=== PATIENT | male | born 1975 | race Caucasian/White ===

== ENCOUNTER → 2024-08-22 | Outpatient (CLI) | payer BC, SELFPAY ==
[2024-08-22 17:15] LABS: Absolute Neutrophil Count 5.6 X10^3/uL (2.0-7.7); Basophil# 0.07 X10^3/uL; Basophil% 0.8 % (0-1); Eosinophil# 0.21 X10^3/uL; Eosinophils% 2.3 % (0-5); Lymphocyte % 26.5 % (19-41); Mean Corp Hgb Conc 34.9 g/dL (32-36); Mean Corpuscular Hgb 29.3 pg (27.0-32.0); Mean Platelet Vol. 10.3 fl (6.2-12.0); Monocyte# 0.74 X10^3/uL; Monocyte% 8.2 % (0-10); NRBC Flagged by Analyzer 0 % (0-5); Neutrophil # 5.62 X10^3/uL (2.7-7.7); Neutrophil % 61.9 % (47-70); Platelet Count 322 K/mm3 (150-450); RBC Distribution Width CV 12.4 % (11.6-14.6); Red Blood Count 5.12 M/mm3 (4.6-6.2); White Blood Count 9.1 K/mm3 (4.4-11.0)
[2024-08-22 17:55] LABS: ALB/GLOB Ratio 1.2 RATIO (0.9-2.4); AST(SGOT) 29 U/L (15-37); Alanine Aminotransfer ALT/SGPT 28 U/L (16-61); Albumin, Serum 4.2 g/dL (3.2-5.0); Alkaline Phosphatase 97 U/L (45-117); Anion Gap 8 (5-15); BUN 10 mg/dL (7-18); BUN/Creat Ratio 11.7 RATIO (10-20); Calcium,Total 8.9 mg/dL (8.5-10.1); Chloride 102 mmol/L (98-107); Cholesterol 180 mg/dL (200); Creatinine, Serum 0.85 mg/dL (0.70-1.30); EST Glomerular Filtration Rate 102 mL/min (>60); Est Glom Filt Rate - Afr Amer 124 mL/min (>60); Globulin 3.4 g/dL (2.2-4.2); Glucose 83 mg/dL (74-106); High Density Lipoprotein 62 mg/dL; Protein, Total 7.6 g/dL (6.4-8.2); Sodium Level 136 mmol/L (136-145); Triglycerides 79 mg/dL; Very Low Density Lipoprotein 16 mg/dL (5-40)
[2024-08-22 23:42] LABS: Hemoglobin A1c 5.1 % (3.8-5.6)
== END | disposition home or self-care (01) ==
LOC: VSLAB 16:54
PROVIDERS: PCP Nurse Practitioner Family; Visit Provider Nurse Practitioner Family
DX: Z00.00 Encounter for general adult medical examination without abnormal findings (principal)
CPT/HCPCS: 36415; 80053; 80061; 83036; 84443; 85025

== ENCOUNTER 2024-10-27 10:00 | Day surgery (SDC) | payer BC, SELFPAY ==
[2024-10-27] VITALS (10 sets, daily range): BP systolic 91–130; BP diastolic 54–82; PULSE 50–64; RESP 16; TEMP 36.2–36.6; O2SAT 97–100
--- NOTE | 2024-10-27 10:12 | PCM.PRE.AN2 ---
ASA Classification* ASA Classification ASA Classification: 2 Assessment & Plan Anesthesia* Anesthesia Assessment Anesthesia Assessment: Discussed sedation and/or anesthesia options, risks, benefits, and alternatives with patient/parents/legal guardian/POA. Questions invited. The patient/parents/legal guardian/POA seems to understand and agrees to proceed with anesthesia plan. Reviewed the physical assessment, medical history, allergy history and patient home medications list prior to surgery/procedure/anesthetic and documented any changes. Performed airway and anesthesia risk assessments. Anesthesia Type Anesthesia Type: MAC Anesthesia Focused Assessment* Airway Assessment Mouth opens: >3 cm Mallampati Score: II Focused Labs Anesthesia Preop lab: CBC WBC 9.1 K/mm3 (4.4-11.0) 08/22/24 16:56 08/22/24 RBC 5.12 M/mm3 (4.6-6.2) 08/22/24 16:56 08/22/24 Hgb 15.0 g/dL (13.0-16.5) 08/22/24 16:56 08/22/24 Hct 43.0 % (40-54) 08/22/24 16:56 08/22/24 Plt Count 322 K/mm3 (150-450) 08/22/24 16:56 08/22/24 CHEMISTRY Potassium 4.0 mmol/L (3.5-5.1) 08/22/24 16:56 08/22/24 Sodium 136 mmol/L (136-145) 08/22/24 16:56 08/22/24 BUN 10 mg/dL (7-18) 08/22/24 16:56 08/22/24 Creatinine 0.85 mg/dL (0.70-1.30) 08/22/24 16:56 08/22/24 Glucose 83 mg/dL (74-106) 08/22/24 16:56 08/22/24 TSH 2.820 uIU/mL (0.358-3.740) 08/22/24 16:56 08/22/24 COAG Pre-Assessment Diagnosis/Proposed Procedure Planned Operative Procedure(s): COLONOSCOPY Anesthesia History 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 When Was Last Pacemaker Check QUESTION #4 FULL TEXT: You/Your Family Experience fever (hyperthermia) with Anesthesia Last Oral Intake Last Oral intake: Last Oral Intake NPO since Meds taken in AM with sips of water? Meds patient instructed to take am of surgery PONV PONV - assistant business manager: PONV - assistant business manager Female No 10/20/24 16:49 HX of Motion Sickness Yes 10/20/24 16:49 HX of N/V After Surgery No 10/20/24 16:49 Non-Smoker Yes 10/20/24 16:49 Duration of Surgery greater No 10/20/24 16:49 than 60 minutes Number of Risk Factors 2 10/20/24 16:49 PONV Score Moderate Risk 10/20/24 16:49 Height & Weight Height & Weight: Anesthesia: Height & Weight Height 5 ft 6 in 09/21/24 14:28 Respiratory Assessment Respiratory Assessment - assistant business manager: Respiratory Tract Infection Hx - assistant business manager Hx Respiratory Tract Infection No 10/20/24 16:49 STOP Sleep Apnea STOP Sleep Apnea - assistant business manager: STOP Sleep Apnea - assistant business manager Hx Hypertension No 10/20/24 16:49 Hx Sleep Apnea No 10/20/24 16:49 CPAP BIPAP Do you snore loudly (louder Yes 10/20/24 16:49 than talking or can be heard Do you often feel tired/ No 10/20/24 16:49 fatigued/ sleepy during daytime? Has anyone observed you stop No 10/20/24 16:49 breathing during sleep? STOP Results Negative 10/20/24 16:49 QUESTION #5 FULL TEXT : Do you snore loudly (louder than talking or can be heard through closed doors)? Tobacco Use History Tobacco Use History - assistant business manager: Tobacco Use History - assistant business manager Tobacco Use Smoking Status Never smoker 10/20/24 16:49 Hx Tobacco Use Yes: CHEWS TOBACCO 10/20/24 16:49 Years Smoking Packs Smoked per Day Smoking Cessation Date was within the last 15 years Hx Smoking Cessation Date Hx Smoking Cessation Counseling Hematologic Medial History Hematologic Hx - assistant business manager: Hematologic Medical Hx - channel lip wetter Hx of Blood Transfusion No 10/20/24 16:49 Hx of Transfusion in last 3 No 10/20/24 16:49 Months Date of Last Transfusion (if within last 3 months) Ever experience any problems No 10/20/24 16:49 with transfusion(s)? Specify any problems Hx of Preganancy in last 3 N/A 10/20/24 16:49 Months Nurse Filling Out Transfusion MGRIFFITH 10/20/24 16:49 & Questions: Date: 10/20/24 10/20/24 16:49 Time: 16:51 10/20/24 16:49 Patient unable to answer at this time (ie. confused, unrespo /Reproduction History /Reproductive History - assistant business manager: /Reproductive Hx- assistant business manager Hx Now Gestational Age (in weeks): EDC: Hx Hx Para Hx Section SAB PFSH Medical History Wears glasses Heartburn Chews tobacco Family history of colon cancer Screening for colon cancer Kidney stones Home Medications ?Medication ?Instructions ?Recorded ?Last Taken ?Type NK 09/21/24 Unknown History Allergy/AdvReac Type Severity Reaction Status Date / Time No Known Allergies Allergy Verified 10/20/24 16:47 Surgical History History of lithotripsy Social History Smoking Status: Never smoker Smokeless tobacco user: other alcohol intake: never substance use type: does not use additional social history: pt denies vaping, denies edibles, denies marijuana use, denies aspirin, denies ibuprofen use, denies history of blood clots, pt admits using smokeless tobacco Review of Systems (Anesthesia) ROS Narrative System reviewed and no additional complaints, except as documented.
--- NOTE | 2024-10-27 10:52 | H&P.OPEN ---
HPI - General HPI Narrative ELIZABETH BALBUENA, is a 48 M who presents with family history of colon cancer in his brother who is 55. He denies any abdominal pain or blood in the stool. He has never had a colonoscopy. [facility] Medical History Wears glasses Heartburn Chews tobacco Family history of colon cancer Screening for colon cancer Kidney stones Home Medications ?Medication ?Instructions ?Recorded ?Last Taken ?Type NK 09/21/24 Unknown History Allergy/AdvReac Type Severity Reaction Status Date / Time No Known Allergies Allergy Verified 10/27/24 10:12 Surgical History History of lithotripsy Social History Smoking Status: Never smoker Smokeless tobacco user: other alcohol intake: never substance use type: does not use additional social history: pt denies vaping, denies edibles, denies marijuana use, denies aspirin, denies ibuprofen use, denies history of blood clots, pt admits using smokeless tobacco Past Medical/Surgical History Planned Operation Planned Operative Procedure(s): COLONOSCOPY Previous Hospitalizations/Surgeries HX Hospitalizations: No Any Problems With Anesthesia: No You/Your Family Experience Fever (Hyperthermia) With Anes: No Cholinesterase deficiency: No Cardiovascular Hx Hypertension: No Respiratory Hx Sleep Apnea: No Hx Respiratory Tract Infection/Cold (presently): No Do You Snore Loudly (louder than talking or can be heard): Yes Do You Often Feel Tired/ Fatigued/ Sleepy Dring Daytime?: No Has Anyone Observed You Stop Breathing During Sleep?: No Result (for STOP score): Negative Smoking Status: Never smoker Neurological Does patient have nerve stimulator: No Miscellaneous Recent Exposure to Contagious Disease: No Allergies No Known Allergies Allergy (Verified 10/27/24 10:12) Discharge Is Pt Admitted From a Fpc, or a Care Home: No Who Could Help: FAMILY After D/C, Where Do you Plan to Go: Return Home Vital Signs Vital Signs Vital Signs: 10/27/24 10:13 10/27/24 10:13 Temperature 97.8 F Temperature Source Temporal Pulse Rate 56 L Respiratory Rate 16 Respiratory Pattern Normal Blood Pressure 130/82 H Blood Pressure Mean 98 Blood Pressure Source Monitor Blood Pressure Position Sitting Blood Pressure Location Left Arm Pulse Ox 100 Oxygen Delivery Method Room Air Physical Exam Const alert and oriented x3 HEENT normocephalic Eyes PERRL Resp normal respiratory effort and normal air movement Cardio regular rate and regular rhythm GI soft to palpation, non-tender and non-distended Extremity normal to inspection Assessment & Plan Assessment/Plan (1) Family history of colon cancer: PLAN: I explained endoscopy in detail to the patient. I explained the risks including but not limited to stroke or heart attack with anesthesia, perforation of the GI tract, bleeding, infection. I explained that any of these could necessitate further emergency surgery. The patient understands and all questions were answered sufficiently. The patient wishes to proceed with procedure. Alberto Quinonez MD Pager: [facility] [address] [place] [address], [address] [place] [phone] Office: Surgery Risks - Colonoscopy Risks Include but are not Limited To: Risks include but are not limited to: Bleeding, perforation requiring further surgery, inability to complete colonoscopy requiring barium enema.
--- NOTE | 2024-10-27 11:00 | COLBX_PTH ---
PATIENT: ELIZABETH BALBUENA LOC: EN U#:[id number] AGE/SX: 48/M ROOM: RE10/27/[address]: Dr. Alberto Quinonez MD : 1975 BED: DIS: 10/27/2024 SPEC #: [id number] RECD: 10/27/24 16:42 STATUS: NALLELY VIDAL #: [id number] ELLIOT: 10/27/24 11:[address]: Alberto Quinonez DEPT: SURGICAL PATHOLOGY RECD BY: Karlie Lyons ENTERED: 10/30/24 07:36 SP TYPE: COLON BX OTHR DR: Ignacia Varghese, [facility], SENIOR MEDICAL TECHNOLOGIST-C Tissues: A - Rectum, NOS Procedures: Surgery Specimen Level IV HEADER OPERATION: Colonoscopy, polypectomy PRE-OP DIAGNOSIS: Family history of colon cancer TISSUE SUBMITTED: A- Rectal polyp MICROSCOPIC DIAGNOSIS A. Rectum, polyp, biopsy: * Tubular adenoma MICROSCOPIC DESCRIPTION Slides are reviewed. GROSS DESCRIPTION A. Received in formalin in a container labeled with the patient's name, date of , and rectal polyp are 2 evans-pink fragments of mucosal tissue measuring 0.5 x 0.2 x 0.1 cm and 0.6 x 0.6 x 0.5 cm. The largest is bisected (no margin identified). Submitted entirely in A1. [facility] 10/31/2024 CPT:22770
--- NOTE | 2024-10-27 11:19 | OP.CCLET_ITS ---
10/27/[address] [facility], Clinical Reviewer-c Re : Colonoscopy procedure for Jersey Varghese This procedure was performed on Sunday, October 27, 2024. My impressions and recommendations are as follows: Impressions : - One polyp in the rectum, removed with a hot snare. Resected and retrieved. - The entire examined colon is normal on direct and retroflexion views. Recommendations : - Discharge patient to home. - Resume previous diet. - Continue present medications. - Await pathology results. - Repeat colonoscopy in 5 years for surveillance. My findings are described in the full procedure note, which is enclosed. If I can be of further assistance, please feel free to contact me at Doctor phone number(s): , Work: . Sincerely, Alberto Quinonez MD 10/27/2024 11:18:57 AM This report has been signed electronically.
--- NOTE | 2024-10-27 11:19 | OP.COLON_ITS ---
Patient Name: Jersey Bernard Procedure Date: 10/27/2024 10:59 AM Date of : 1975 Age: 48 Procedure: Colonoscopy Indications: Screening in patient at increased risk: Family history of 1st-degree relative with colorectal cancer before age 60 years Providers: Alberto Quinonez MD Referring MD: Ignacia Varghese [facility], Financial Risk Manager-c Medicines: Propofol per Anesthesia Patient Profile: This is a 48 year old male. Refer to note in patient chart for documentation of history and physical. Last Colonoscopy: none. The patient's first colonoscopy is today. Complications: No immediate complications. Procedure: Pre-Anesthesia Assessment: - Prior to the procedure, a History and Physical was performed, and patient medications and allergies were reviewed. The patient's tolerance of previous anesthesia was also reviewed. The risks and benefits of the procedure and the sedation options and risks were discussed with the patient. All questions were answered, and informed consent was obtained. Prior Anticoagulants: The patient has taken no anticoagulant or antiplatelet agents. After reviewing the risks and benefits, the patient was deemed in satisfactory condition to undergo the procedure. After I obtained informed consent, the scope was passed under direct vision. Throughout the procedure, the patient's blood pressure, pulse, and oxygen saturations were monitored continuously. The Colonoscope was introduced through the anus and advanced to the cecum, identified by appendiceal orifice and ileocecal valve. The colonoscopy was performed without difficulty. The patient tolerated the procedure well. The quality of the bowel preparation was good. The ileocecal valve, appendiceal orifice, and rectum were photographed. Scope In: 11:04:28 AM Scope Withdrawal Time 0 hours 5 minutes 32 seconds Scope Out: 11:16:51 AM Total Procedure Duration Time 0 hours 12 minutes 23 seconds Findings: A polyp was found in the rectum. The polyp was removed with a hot snare. Resection and retrieval were complete. The entire examined colon appeared normal on direct and retroflexion views. Impression: - One polyp in the rectum, removed with a hot snare. Resected and retrieved. - The entire examined colon is normal on direct and retroflexion views. Recommendation: - Discharge patient to home. - Resume previous diet. - Continue present medications. - Await pathology results. - Repeat colonoscopy in 5 years for surveillance. Procedure Code(s): --- Professional --- 83013, Colonoscopy, flexible; with removal of tumor(s), polyp(s), or other lesion(s) by snare technique Diagnosis Code(s): --- Professional --- Z80.0, Family history of malignant neoplasm of digestive organs D12.8, Benign neoplasm of rectum CPT copyright 2021 [employer]. All rights reserved. The codes documented in this report are preliminary and upon cork insulation installer review may be revised to meet current compliance requirements. Alberto Quinonez MD 10/27/2024 11:18:57 AM This report has been signed electronically. Number of Addenda: 0 Note Initiated On: 10/27/2024 10:59 AM
--- NOTE | 2024-10-27 11:37 | PCM.POST.ANE ---
Anesthesia: Postop Eval I Current Vital Signs Temperature: 97.1 F Pulse Rate: 64 Blood Pressure: 97/57 Respiratory Rate: 16 Pulse Ox: 98 Oxygen Delivery Method: Room Air Assessment Airway patent: Yes Spontaneous unlabored respirations: Yes Mental status: Asleep nausea: No Vomiting: No Anesthesia Complication: No Fluid Hydration Crystalloid volume administer (ml): 55 Total IV fluid infused: 55 Progress Note Anesthesia document: Postop Eval 1 completed: Yes
--- NOTE | 2024-10-27 12:28 | PCM.POSTANE2 ---
Anesthesia Postop Eval I Sum Postop Eval Completion status Anesthesia document: Postop Eval 1 completed: Yes Anesthesia Postop Eval I Summary Anesthesia Postop Eval I Summary: Anesthesia Postop Eval I: Assessment Summary Airway patent Yes 10/27/24 11:38 [email or web address] Spontaneous unlabored Yes 10/27/24 11:38 [email or web address] respirations Mental status Asleep 10/27/24 11:38 [email or web address] nausea No 10/27/24 11:38 [email or web address] Vomiting No 10/27/24 11:38 [email or web address] Anesthesia Postop Eval I: Fluid Summary Crystalloid volume administer 55 10/27/24 11:38 [email or web address] (ml) Colloids volume administered ( ml) Blood Product volume administered (ml) Total IV fluid infused 55 10/27/24 11:38 [email or web address] Anesthesia Postop Eval I: Summary Notes Anesthesia Complication No 10/27/24 11:38 [email or web address] Anesthesia Complication Comment: Post-operative progress note Anesthesia: Postop Eval II Evaluation Mental status: Awake Pain Level: 0 nausea: No Vomiting: No
== END 2024-10-27 12:22 | disposition home or self-care (01) ==
LOC: EN 10:01 → AC 10:02
PROVIDERS: PCP Nurse Practitioner Family; Referring Provider Nurse Practitioner Family; Visit Provider Surgery
PROC: 0DJD8ZZ Inspection of Lower Intestinal Tract, Via Natural or Artificial Opening Endoscopic (ICD-10-PCS; CPT 45378; principal; 2024-10-27 10:55)
DX: Z12.11 Encounter for screening for malignant neoplasm of colon (principal); Z80.0 Family history of malignant neoplasm of digestive organs; F17.220 Nicotine dependence, chewing tobacco, uncomplicated; K62.1 Rectal polyp
CPT/HCPCS: 45385; 88305; A4216; J2405